=== PATIENT | female | born 1995 ===

== ENCOUNTER 2017-09-01 20:31 | Emergency (ER) | payer MEDICAID ==
[2017-09-01 20:41] VITALS: BMI 18.9
[2017-09-01 20:56] VITALS: RESP 18; TEMP 98.5; O2SAT 100
[2017-09-01] MEDS ORDERED: DiphenhydrAMINE 50 mg/ml Inj IVP STA (21:07)
--- NOTE | 2017-09-01 21:12 | ED PDOC ---
Arrival/HPI - General Chief Complaint: Headache Time Seen by Provider: 09/01/17 20:37 - History of Present Illness Narrative History of Present Illness (Text): 22 year old with PMH of hypothyroidism presents with right sided constant stabbing headache for one week after she fell from bed and hit her head. She also reports photophobia whenever the headache worsens. She reports some neck tenderness, sore throat, and a mild fever yesterday but no fever today. She has had a mild dry cough. Patient denies shortness of breath, wheezing, sputum, dysuria, hematuria, urinary frequency, weakness, and numbness/tingling. Her PCP is Dr. Burrell. (Shraddha Nieto) Past Medical History - Provider Review Nursing Documentation Reviewed: Yes - Psychiatric Hx Substance Use: No - Anesthesia Hx Anesthesia: Yes Hx Anesthesia Reactions: No Hx Malignant Hyperthermia: No Family/Social History - Physician Review Nursing Documentation Reviewed: Yes Family/Social History: Diabetes, Hypertension, CAD/AR Smoking Status: Never Smoked Hx Alcohol Use: Yes Frequency of alcohol use: Socially Hx Substance Use: No Allergies/Home Meds Allergies/Adverse Reactions: Allergies No Known Allergies Allergy (Verified 09/01/17 20:41) Review of Systems - Physician Review All systems were reviewed & negative as marked: Yes - Review of Systems Constitutional: Fevers (105 yesterday) Eyes: Vision Changes, Photophobia ENT: Normal Respiratory: Cough (mild dry cough). absent: SOB, Sputum Cardiovascular: Chest Pain (mild exacerbated by position changes). absent: Palpitations Gastrointestinal: absent: Abdominal Pain, Constipation, Diarrhea, Nausea, Vomiting Genitourinary Female: Normal. absent: Dysuria, Frequency, Hematuria Musculoskeletal: Neck Pain Skin: Normal Neurological: Headache (right sided). absent: Dizziness, Speech Changes, Facial Droop Physical Exam Vital Signs Reviewed: Yes Temperature: Afebrile Blood Pressure: Normal Pulse: Tachycardic Respiratory Rate: Normal Appearance: Positive for: Well-Appearing Pain Distress: Mild Mental Status: Positive for: Alert and Oriented X 3 - Systems Exam Head: Present: Atraumatic, Normocephalic Pupils: Present: PERRL Extroacular Muscles: Present: EOMI Conjunctiva: Present: Normal Pharnyx: Present: Normal Nose (External): Present: Atraumatic Respiratory/Chest: Present: Clear to Auscultation Cardiovascular: Present: Regular Rate and Rhythm, Normal S1, S2. No: Murmurs Abdomen: Present: Normal Bowel Sounds. No: Tenderness, Distention Upper Extremity: Present: Normal Inspection, Normal ROM, NORMAL PULSES Lower Extremity: Present: Normal Inspection, NORMAL PULSES, Normal ROM Neurological: Present: GCS=15, CN II-XII Intact, Speech Normal, Motor Func Grossly Intact Skin: Present: Warm (very warm to touch), Dry, Normal Color Psychiatric: Present: Alert, Oriented x 3, Normal Insight, Normal Concentration Vital Signs Temp Pulse Resp BP Pulse Ox 09/01/17 23:00 91 H 18 108/79 100 09/01/17 20:55 98.5 F 101 H 18 101/79 100 Medical Decision Making - Lab Interpretations I have reviewed the lab results: Yes - RAD Interpretation [employer] Supervisor: Radiologist ED Course and Treatment: In agreement with resident note which contains more details about the patient. Patient was seen and evaluated with resident. Came up with plan and treatment together. Pt, whose past medical history includes hypothyroidism, presented for headache x1 week s/p fall. (Jeffery Trotter) Impression: 22 year old with PMH of hypothyroidism presents with right sided constant stabbing headache for one week after she fell from bed and hit her head. She also reports photophobia whenever the headache worsens. She reports some neck tenderness, sore throat, and a mild fever yesterday but no fever today. Assessment: tension headache vs. migrane. Possible streptococcal infection Plan: Reglan 10 mg and Benadryl 25 mg IV given for headache relief. Head CT ordered to rule out intracranial bleed. CBC and CMP to evaluate for anemia, leukocytosis, and electrolyte imbalances. 09/01/17 22:11 CBC and CMP are unremarkable except for WBC of 14.5. 09/01/17 22:[address]: no acute intracranial process. Patient can be discharged with amoxicillin 500mg TID for 10 days and told to follow up with PCP. (Shraddha Nieto) - Lab Interpretations Lab Results: 09/01/17 20:20 09/01/17 20:20 Lab Results 09/01/17 20:20: Sodium 139, Potassium 3.9, Chloride 102, Carbon Dioxide 28, Anion Gap 13, BUN 7, Creatinine 0.6 L, Est GFR ( Amer) > 60, Est GFR (Non -Af Amer) > 60, Random Glucose 122 H, Calcium 9.2, Magnesium 2.2, Total Bilirubin 0.5, AST 35, ALT 26, Alkaline Phosphatase 121, Total Protein 7.1, Albumin 4.0, Globulin 3.1, Albumin/Globulin Ratio 1.3 09/01/17 20:20: WBC 14.5 H, RBC 4.70, Hgb 12.6, Hct 38.7, MCV 82.3, MCH 26.8, MCHC 32.6, RDW 13.9, Plt Count 292, MPV 9.0, Gran % 81.6 H, Lymph % (Auto) 12.6 L, [place] % (Auto) 5.1, Eos % (Auto) 0.6 L, Baso % (Auto) 0.1, Gran # 11.81 H, Lymph # (Auto) 1.8, [place] # (Auto) 0.7 H, Eos # (Auto) 0.1, Baso # (Auto) 0.01 - RAD Interpretation Radiology Orders: 09/01/17 21:18 HEAD W/O CONTRAST [CT] Stat - Medication Orders Current Medication Orders: Discontinued Medications Diphenhydramine HCl (Benadryl) 25 mg IVP STAT STA Stop: 09/01/17 21:08 Last Admin: 09/01/17 21:21 Dose: 25 mg IVP Administration Document 09/01/17 21:21 AD (Rec: 09/01/17 21:21 AD [id number]) Charges for Administration # of IVP Administrations 1 Metoclopramide HCl (Reglan) 10 mg IVP STAT STA Stop: 09/01/17 21:08 Last Admin: 09/01/17 21:21 Dose: 10 mg IVP Administration Document 09/01/17 21:21 AD (Rec: 09/01/17 21:21 AD [id number]) Charges for Administration # of IVP Administrations 1 - PA / FRONT DESK PERSON / Resident Statement TREY has reviewed & agrees with the documentation as recorded. TREY has examined the patient and agrees with the treatment plan. Disposition/Present on Arrival - Present on Arrival Any Indicators Present on Arrival: No History of DVT/PE: No History of Uncontrolled Diabetes: No Urinary Catheter: No History of Decub. Ulcer: No History Surgical Site Infection Following: None - Disposition Have Diagnosis and Disposition been Completed?: Yes Disposition Time: 22:44 Patient Plan: Discharge - Disposition Diagnosis: Headache Disposition: HOME/ ROUTINE Condition: STABLE Discharge Instructions (ExitCare): Tension Headache, Migraine Headache (DC) Additional Instructions: TRINH WONG, thank you for letting us take care of you today. Your provider was Jeffery Trotter MD and you were treated for HEADACH. The emergency medical care you received today was directed at your acute symptoms. Head CT and lab work came back negative for any acute process. You were given reglan and benadryl to relieve your headache. Return to the Emergency Department if your symptoms worsen, do not improve, or if you have any other problems. Please contact your PCP, Dr. Burrell. You will be discharged with amoxicillin three times a day for 10 days for throat infection. Bring any paperwork you were given at discharge with you along with any medications you are taking to your follow up visit. Our treatment cannot replace ongoing medical care by a primary care provider outside of the emergency department. Thank you for allowing the [facility] team to be part of your care today. Prescriptions: Amoxicillin 500 mg PO TID 10 Days #30 tablet Referrals: Brendan Dawn MD [Staff Provider] - Follow up with primary Forms: [email or web address] (Telugu)
[2017-09-01 21:33] LABS: BASO # 0.01 K/mm3 (0.0-2.0); BASO % 0.1 % (0.0-3.0); EOS # 0.1 (0.0-0.7); EOS % 0.6 % (1.5-5.0); GRAN # 11.81 (1.4-6.5); GRAN % 81.6 % (50.0-68.0); HEMOGLOBIN 12.6 g/dL (12.0-16.0); LYMPH # 1.8 (1.2-3.4); LYMPH % 12.6 % (22.0-35.0); MEAN CELL VOLUME 82.3 fl (80.0-105.0); MEAN CORPUSCULAR HEMOGLOBIN 26.8 pg (25.0-35.0); MEAN CORPUSCULAR HGB CONC 32.6 g/dl (31.0-37.0); MONO # 0.7 (0.1-0.6); MONO % 5.1 % (1.0-6.0); RBC 4.7 10^6/uL (3.5-6.1); RED CELL DISTRIBUTION WIDTH 13.9 % (11.5-14.5); WHITE BLOOD COUNT 14.5 10^3/ul (4.5-11.0)
[2017-09-01 21:50] LABS: ALB/GLOB RATIO 1.3 (1.1-1.8); ALT/SGPT 26 U/L (7-56); AST/SGOT 35 U/L (14-36); BLOOD UREA NITROGEN 7 mg/dL (7-21); CALCIUM 9.2 mg/dL (8.4-10.5); GFR AFRICAN-AMERICAN > 60; GFR NON-AFRICAN AMERICAN > 60
[2017-09-01 23:06] VITALS: BP 108/79; PULSE 91
--- NOTE | 2017-09-02 08:13 | CT ---
Date of service: 09/01/2017 PROCEDURE: CT HEAD WITHOUT CONTRAST. HISTORY: head trauma COMPARISON: None available. TECHNIQUE: Axial computed tomography images were obtained through the head/brain without intravenous contrast. Radiation dose: Total exam DLP = 666 mGy-cm. This CT exam was performed using one or more of the following dose reduction techniques: Automated exposure control, adjustment of the mA and/or kV according to patient size, and/or use of iterative reconstruction technique. FINDINGS: HEMORRHAGE: No intracranial hemorrhage. BRAIN: No mass effect or edema. No atrophy or chronic microvascular ischemic changes. VENTRICLES: Unremarkable. No hydrocephalus. CALVARIUM: Unremarkable. PARANASAL SINUSES: Unremarkable as visualized. No significant inflammatory changes. MASTOID AIR CELLS: Unremarkable as visualized. No inflammatory changes. OTHER FINDINGS: The report concurs with the preliminary [facility] report IMPRESSION: Normal CT of the Head.
== END 2017-09-01 23:00 | disposition home or self-care (01) ==
LOC: ED 20:31 → MERGE 20:31 → ED 23:00
DX: R51 Headache (principal); E03.9 Hypothyroidism, unspecified
CPT/HCPCS: 70450; 80053; 83735; 85025; 96374; 96375; 99285; J1200; J2765